=== PATIENT | female | born 1965 | race Caucasian/White ===

== ENCOUNTER 2022-06-18 15:42 | Emergency (ER) | payer MEDICARE, SELFPAY ==
[2022-06-18 15:43] VITALS: BP 149/81; PULSE 133; RESP 18; TEMP 36; O2SAT 94; BMI 54.8
--- NOTE | 2022-06-18 16:09 | XRR_ITS ---
PROCEDURE INFORMATION: Exam: XR Right Knee Exam date and time: 06/18/2022 4:24 PM Age: 56 years old Clinical indication: Pain; Knee; Right TECHNIQUE: Imaging protocol: Radiologic exam of the Right knee. Views: 3 views. COMPARISON: No relevant prior studies available. FINDINGS: Bones/joints: There are [id number]-[id number]-dnvyyety degenerative changes throughout the right knee most pronounced within the medial knee compartment with joint space narrowing, subchondral sclerosis and mild marginal spurring. There is no fracture, malalignment or underlying osseous lesion detected. Soft tissues: Unremarkable. XR/XR knee RT 3V* [id number] IMPRESSION: Mild-moderate tricompartmental osteoarthritis.
--- NOTE | 2022-06-18 16:10 | W.ED.EXTPRO ---
HPI - Extremity Problem General: Chief complaint: Extremity Injury, Lower Stated complaint: right knee pain Time Seen by Provider: 06/18/22 15:51 Source: patient and family Mode of arrival: ambulatory Limitations: no limitations History of Present Illness: This patient presents to the emergency department company by her spouse. She states she is experienced increasing pain in her right knee over the past 3 weeks. She denies any recent injury but states she has been told she has bone spurs in her knee in the past. She is here because she missed her rheumatology appointment on Thursday because of the weather and cannot get into see an orthopedic surgeon for several weeks. She states that the pain is worse when climbing stairs, etc. She states that some of the pain radiates up into her right hip and her right lower back. She denies any prior surgeries on that knee, remote significant injuries etc. She states that occasionally locks and pops on her. She states it does not give way. She also apparently has concomitant rheumatoid arthritis and is followed by data entry specialist in [place]. She denies any fevers or chills, redness of the joint, swelling the joint etc. Associated symptoms: Deny fever(s) or rash Review of Systems Const: Denies: fever(s) or chills Musc: Reports: joint pain; Denies: neck pain or joint warmth Skin/Breast: Denies: rash or erythema Neuro: Denies: numbness in extremities or weakness in extremities Shaun/Lymph: Denies: easy bruising or easy bleeding Physical Exam Narrative: EXAM NARRATIVE: Patient is alert makes good eye contact speech speech is goal-directed. Appears to be in no acute distress. Const: COMMON NORMALS: no acute distress and patient oriented x3 GENERAL APPEARANCE: cooperative and comfortable NUTRITIONAL APPEARANCE: overweight HENMT: COMMON NORMALS: normocephalic HEAD & SCALP: normocephalic Cardio: COMMON NORMALS: Peripheral pulses 2+ throughout PERIPHERAL PULSES: Peripheral pulses 2+ throughout : COMMON NORMALS: Yes no CVA tenderness BLADDER/KIDNEY EXAM: Yes no CVA tenderness Back/Pelvis: COMMON NORMALS: no CVA tenderness, thoracic and lumbar spine normal to inspection, no thoracic nor lumbar tenderness and thoraco-lumbar ROM normal SACROILIAC JOINTS: Yes SI joint(s) abnormal SI joint details: tender to palpation (Right) Extremity: COMMON NORMALS: capillary refill normal, no calf tenderness and no pedal edema NARRATIVE EXTREMITY EXAM: Examination with attention in the right leg reveals symmetrically enlarged knee joints. She has tenderness along the joint line both medially and laterally. No erythema, no effusion, patella tendon function is intact. She has no laxity to varus or valgus stress, negative Mariano's, negative anterior drawer. Distal right leg is unremarkable. No ankle effusion, deformity, tenderness. Normal range of motion. Neuro: COMMON NORMALS: patient oriented x3 Course Vital Signs: Vital signs: Vital Signs Temperature 96.8 F L 06/18/22 15:43 Pulse Rate 133 H 06/18/22 15:43 Respiratory Rate 18 06/18/22 15:43 Blood Pressure 149/81 06/18/22 15:43 Pulse Oximetry 94 06/18/22 15:43 Oxygen Delivery Me thod 06/18/22 15:43 MDM - Extremity (Nontraumatic) Medical Decision Making This patient came to our emergency department because of right knee pain atraumatic in nature but is progressed over the past several weeks. Clinical examination showed no findings suggestive of acute fracture, ligamentous instability, other worrisome findings. Her radiographs also confirmed findings consistent with osteoarthritis. Her clinical picture is consistent with that of osteoarthritis without any evidence of a septic joint, or other concerning finding today. She is already on immune suppressing medications for her rheumatoid arthritis and therefore I am reluctant to add steroids etc. at this time. We will place her on a course of anti-inflammatories and she has a oncoming orthopedic consultation scheduled. Medical Records I reviewed the patient's medical records. Lab Data I reviewed the patient's lab results. Radiology Impressions Knee X-Ray 06/18/22 16:09 IMPRESSION: Mild-moderate tricompartmental osteoarthritis. Discharge Plan Discharge Patient Disposition: Home Clinical Impression: Osteoarthritis of right knee Condition: Stable Prescriptions: New meloxicam 7.5 mg tablet 7.5 mg PO DAILY Qty: 30 1RF No Action tizanidine 2 mg tablet 2 mg PO BID gabapentin 300 mg capsule 600 mg PO TID hydroxychloroquine 200 mg tablet 200 mg PO BID Humira 40 mg/0.8 mL Syringe Kit See Rx Instructions .ROUTE .COMPLEX Rx Instructions: 40 mg subcutaneously DIRECTED EVERY TWO WEEKS duloxetine 60 mg capsule,delayed release(DR/EC) 60 mg PO QPM Vitamin D3 50 mcg (2,000 unit) Capsule 50 mcg PO QPM Women's 50 Plus Daily Formula 400 mcg-500 mg calcium-20 mcg Tablet 1 tab PO QPM Discharge Orders: Discharge ED (Routine); Ordered 06/18/22 Ordered By: Tex Deleon Referrals: Noelle Paul FNP [Primary Care Provider] - Discharge Diet: Usual diet Discharge Activity: Increase activity as tolerated Patient Instructions: Opioid Safety, Pain Management Activity Restrictions/Additional Instructions: As we discussed your knee has findings which confirms that you have osteoarthritis of your knee. It is traditionally recommended that he using weight bearing and other activity to improve the strength of the muscles and tissues around your knee is important in improving your overall function. We have also provided a prescription for pain medicine to help with your pain. Continue all your other usual medications and follow-up with the orthopedic surgeon as scheduled. If you have worsening symptoms to include fever, hot red knee joint or other concerns return to this or the nearest emergency department. Coding Level of Care Code ED Supervisor Cloth Winding for Anna Yao Exam Detailed
[2022-06-18 17:52] VITALS: PULSE 94; RESP 16; O2SAT 99
== END 2022-06-18 17:50 | disposition home or self-care (01) ==
PROVIDERS: Emergency Provider Emergency Medicine; PCP Nurse Practitioner Family
DX: M17.11 Unilateral primary osteoarthritis, right knee (principal)
CPT/HCPCS: 73562; 99283